=== PATIENT | male | born 1965 | race Caucasian/White ===

== ENCOUNTER → 2019-03-09 | Outpatient (CLI) | payer OTHER ==
--- NOTE | 2019-03-09 20:04 | Diagnostic Imaging Report ---
History: Chronic sinusitis. Comparison studies: Maxillofacial CT from 01/12/2010. Technique: Axial images were obtained through the paranasal sinuses. Coronal and sagittal images reconstructed from the axial data. Dose modulation, iterative reconstruction, and/or weight based adjustment of the mA/kV was utilized to reduce the radiation dose to as low as reasonably achievable. Intravenous contrast: None Findings: Right anterior complex: Frontal sinus: Mild mucosal thickening. Frontonasal recess: Opacified Anterior ethmoid air cells: Moderate mucosal thickening. Ostiomeatal unit: Opacified Maxillary sinus: Moderate mucosal thickening without fluid level. Left anterior complex: Frontal sinus: Clear. Frontonasal recess: Clear. Anterior ethmoid air cells: Mild mucosal thickening. Ostiomeatal unit: Opacified Maxillary sinus: Mild mucosal thickening. Posterior complex: Sphenoid sinuses: Moderate right and mild left mucosal thickening. Sphenoethmoidal recesses: Partially opacified on right side, clear on left. Posterior ethmoid air cells: Mild mucosal thickening. Other: Nasal vestibule and cavity: Patent Nasal septum: Minimal deviation to the left with the tiny osseous spur. Agger Nasi: Partially opacified. Turbinates: Non-aerated bilaterally. Yoko cells: None Lamina papyracea: Intact. Cribriform plates: Asymmetric 3 mm on right and 4.5 mm on left below the level of the fovea ethmoidalis. Olfactory recesses: Clear Optic nerves: Not dehiscent Onodi cells: None Internal carotid arteries: from the sphenoid sinuses by 2 mm on right and 1.5 mm on left. Sphenoid sinuses: Moderate right and mild left mucosal thickening. The lateral recesses are partially aerated. Sphenoid septum: Deviates towards the right side. Orbits: No abnormalities. Bones: No abnormalities. Temporal bones: No abnormalities. IMPRESSION: Mild to moderate mucosal inflammatory changes in the paranasal sinuses as detailed above. Signed by: Dr. Jen Rubio M.D. on 03/09/2019 8:01 PM
== END ==
LOC: CT 16:25
PROVIDERS: ATTEND Otolaryngology Otolaryngology/Facial Plastic Surgery
DX: J32.0 Chronic maxillary sinusitis (principal)
CPT/HCPCS: 70486

== ENCOUNTER 2019-03-10 07:57 | Emergency (ER) | payer OTHER ==
[~2019-03-10] VITALS: Ht 177.8 cm; Wt 136.1 kg
--- OUTSIDE RECORDS SUMMARY | 2019-03-10 07:59 | XMS REPORT ---
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 Allergies, Adverse Reactions, Alerts This patient has no known allergies or adverse reactions. Medications This patient has no known medications. Results Test Description Test Time Test Comments Text Results Atomic Results Result Comments CT MAXIO FAC/PARANAS WO 2019-03-09 19:46:00 [facility] [address] [address] Patient Name: DERRICK PARKINSON MR #: [id number] : 1965 Age/Sex: 53/M Req #: [id number] Adm Physician: Ordered by: NICOLE TATE MD Report #: [id number] Location: CT Room/Bed: Procedure: [id number] CT/CT MAXIO FAC/PARANAS WO Exam Date: 03/09/19 Exam Time: 1655 REPORT STATUS: Signed History: Chronic sinusitis. Comparison studies: Maxillofacial CT from 01/12/2010. Technique: Axial images were obtained through the paranasal sinuses. Coronal and sagittal images reconstructed from the axial data. Dose modulation, iterative reconstruction, and/or weight based adjustment of the mA/kV was utilized to reduce the radiation dose to as low as reasonably achievable. Intravenous contrast: None Findings: Right anterior complex: Frontal sinus: Mild mucosal thickening. Frontonasal recess: Opacified Anterior ethmoid air cells: Moderate mucosal thickening. Ostiomeatal unit: Opacified Maxillary sinus: Moderate mucosal thickening without fluid level. Left anterior complex: Frontal sinus: Clear. Frontonasal recess: Clear. Anterior ethmoid air cells: Mild mucosal thickening. Ostiomeatal unit: Opacified Maxillary sinus: Mild mucosal thickening. Posterior complex: Sphenoid sinuses: Moderate right and mild left mucosal thickening. Sphenoethmoidal recesses: Partially opacified on ri ght side, clear on left. Posterior ethmoid air cells: Mild mucosal thickening. Other: Nasal vestibule and cavity: Patent Nasal septum: Minimal deviation to the left with the tiny osseous spur. Agger Nasi: Partially opacified. Turbinates: Non-aerated bilaterally. Yoko cells: None Lamina papyracea: Intact. Cribriform plates: Asymmetric 3 mm on right and 4.5 mm on left below the level of the fovea ethmoidalis. Olfactory recesses: Clear Optic nerves: Not dehiscent Onodi cells: None Internal carotid arteries: from the sphenoid sinuses by 2 mm on right and 1.5 mm on left. Sphenoid sinuses: Moderate right and mild left mucosal thickening. The lateral recesses are partially aerated. Sphenoid septum: Deviates towards the right side. Orbits: No abnormalities. Bones: No abnormalities. Temporal bones: No abnormalities. IMPRESSION: Mild to moderate mucosal inflammatory changes in the paranasal sinuses as detailed above. Signed by: Dr. Jen Wilson M.D. on 03/09/2019 8:01 PM Dictated By: JEN WILSON MD 00 Transcribed By: LEONCIO on 03/09/192000 COPY TO: NICOLE TATE MD
[2019-03-10] MEDS ORDERED: ASPIRIN 81 MG CHEW TAB PO ONE (08:15)
--- NOTE | 2019-03-10 08:33 | NUR ---
PT STATES HE TOOK HIS BACTRIM AND PREDNISONE THIS MORNING; LAST ORAL INTAKE AROUND 2030 LAST NIGHT PT STATES HE HAS 12 DAYS LEFT ON HIS BACTRIM FOR SINUS INFECTION AND TOOK LAST DOSE OF THIS MORNING
[2019-03-10 08:52] LABS: BASOPHILS % 0.1 % (0.0-1.0); EOSINOPHILS # (AUTO) 0.1 (0.0-0.4); EOSINOPHILS % 0.8 % (0.0-6.0); HEMATOCRIT 47.7 % (38.2-49.6); HEMOGLOBIN 16.1 g/dL (14.0-18.0); LYMPHOCYTES # (AUTO) 2.9 (1.0-3.2); LYMPHOCYTES % 37.1 % (18.0-39.1); MEAN CORPUSCULAR HEMOGLOBIN 29.1 pg (28-32); MEAN CORPUSCULAR HGB CONC 33.8 g/dL (31-35); MEAN CORPUSCULAR VOLUME 86.3 fL (81-99); MONOCYTES # (AUTO) 0.8 (0.2-0.8); MONOCYTES % 10.1 % (4.4-11.3); NEUTROPHILS % 51.5 % (38.7-80.0); PLATELET COUNT 317 x10e3/uL (140-360); RED BLOOD COUNT 5.53 x10e6/uL (4.3-5.7); RED CELL DISTRIBUTION WIDTH 13.2 % (11.7-14.4)
--- NOTE | 2019-03-10 08:56 | Diagnostic Imaging Report ---
Examination: Single AP view of the chest. COMPARISON: None. INDICATION: Chest pain DISCUSSION: The lungs are well-inflated. No focal airspace consolidation, pleural effusion, or pneumothorax. Cardiomediastinal contour and pulmonary vasculature are within normal limits when accounting for portable, AP technique. No acute osseous abnormality. IMPRESSION: 1. No acute cardiopulmonary abnormalities. Signed by: Dr. Pan Downey M.D. on 03/10/2019 8:53 AM
[2019-03-10 08:58] LABS: INR 0.88; PROTHROMBIN TIME 12.4 seconds (11.9-14.5)
[2019-03-10 08:59] LABS: PARTIAL THROMBOPLASTIN TIME 35.2 seconds (23.8-35.5)
[2019-03-10 09:08] LABS: ALANINE AMINOTRANSFERASE 30 IU/L (0-55); ALBUMIN/GLOBULIN RATIO 1.1 (0.8-2.0); ALKALINE PHOSPHATASE 62 IU/L (40-150); ANION GAP 14.1 mmol/L (8-16); BLOOD UREA NITROGEN 11 mg/dL (7-26); BUN/CREATININE RATIO 10 (6-25); CALCIUM 9.7 mg/dL (8.4-10.2); CARBON DIOXIDE 25 mmol/L (22-29); CHLORIDE 104 mmol/L (98-107); CREATINE KINASE 55 IU/L (30-200); CREATININE, SERUM 1.11 mg/dL (0.72-1.25); EST GLOMERULAR FILTRATION RATE > 60 ML/MIN (60-); GLUCOSE 118 mg/dL (74-118); POTASSIUM 4.1 mmol/L (3.5-5.1); SODIUM 139 mmol/L (136-145)
[2019-03-10 10:56] LABS: CREATINE KINASE 50 IU/L (30-200)
[2019-03-10 11:05] VITALS: BP 131/83
== END 2019-03-10 11:25 | disposition home or self-care (01) ==
LOC: ER 07:57
DX: R07.89 Other chest pain (principal); R05 Cough
CPT/HCPCS: 36415; 71045; 80053; 82550; 82553; 84484; 85025; 85610; 85730; 93005; 99284